=== PATIENT | male | born 1950 | race Hispanic/Latino ===

== ENCOUNTER → 2024-10-10 | Outpatient (CLI) | payer OTHER ==
--- NOTE | 2024-10-11 05:57 | HMCIMG ---
EXAM: CT Cardiac calcium scoring. CLINICAL HISTORY: Screening. TECHNIQUE: Thin collimated axial CT cardiac images were obtained. A CT scan is done according to ALARA (As Low As Reasonably Achievable). CONTRAST: None. COMPARISON: None provided. FINDINGS: Calcium Score: VESSEL Number of lesions Volume mm3 Equi. Mass/mg Calcium score LM 0 0 - 0 LAD 5 13.9 - 23.7 LCX 1 8.4 - 12.7 RCA 3 89.4 - 94.2 Total 9 111.7 - 130.7 IMPRESSION: The total calcium score is 130.7. 38th percentile. /[place]
== END | disposition home or self-care (01) ==
LOC: RAH 13:50
PROVIDERS: ATTEND Internal Medicine Cardiovascular Disease
DX: Z13.6 Encounter for screening for cardiovascular disorders (principal)
CPT/HCPCS: 75571